=== PATIENT | female | born 1975 | race Caucasian/White ===

== ENCOUNTER → 2018-11-01 | Outpatient (CLI) | payer OTHER ==
--- NOTE | 2018-11-01 16:49 | RAD ---
Pelvic ultrasound HISTORY: Pelvic pain for 1.5 weeks. Hysterectomy 9 years ago. Transabdominal scan: Uterus is surgically absent. No sonographic abnormality is seen at the vaginal cuff. Right ovary measures 3.5 cm with intact blood supply. Left ovary measures 3.3 cm with intact blood supply. Endovaginal scan: No additional abnormality is are seen. No evidence of free fluid. IMPRESSION: 1. No sonographic abnormality of either ovary. 2. Hysterectomy. Electronically signed by: Tyrone Hays MD (11/01/2018 4:47 PM) [id number]
== END | disposition home or self-care (01) ==
LOC: US 13:10
PROVIDERS: ATTEND Obstetrics & Gynecology
DX: R10.2 Pelvic and perineal pain (principal); Z90.710 Acquired absence of both cervix and uterus
CPT/HCPCS: 76830; 76856